=== PATIENT | male | born 1990 | race Caucasian/White ===

== ENCOUNTER 2016-03-10 19:46 | Emergency (ER) | payer OTHER ==
[2016-03-10 20:40] VITALS: BP 149/80
--- NOTE | 2016-03-10 21:29 | UC ---
Throat Pain/Nasal Farhad HPI - HPI Summary HPI Summary: 26 years old male with nasal congestion, sore throat, sinus pain and pressure for several day but worse over the last 2 days. He was using Mucinex with some relief but suffered from the stomach bug. He has gotten more congested, increased wet cough, sweats and chills over the last few days. States he gets one sinus infection yearly and requires and antibiotic to get better - History of Current Complaint Chief Complaint: UC Stated Complaint: HEAD CONGESTION Time Seen by Provider: 03/10/16 21:16 Hx Obtained From: Patient Onset/Duration: Gradual Onset, Lasting Days, Worse Since - x 2 days Severity: Moderate Cough: Nonproductive Associated Signs & Symptoms: Positive: Dysphagia - mild, Sinus Discomfort, Nasal Discharge, Fever. Negative: FB Sensation, Drooling, Wheezing, Hoarseness , Vomiting, Rash Related History: Seasonal Allergies, Smoking - Epiglottits Risk Factors Epiglottis Risk Factors: Negative - Allergies/Home Medications Allergies/Adverse Reactions: Allergies Allergy/AdvReac Type Severity Reaction Status Date / Time No Known Allergies Allergy Verified 03/10/16 20:34 Home Medications: Home Medications guaiFENesin ER TAB [Mucinex*] 1,200 mg PO BID PRN 03/10/16 [History Confirmed ] PMH/Surg Hx/FS Hx/Imm Hx Previously Healthy: Yes Endocrine History Of: Denies: Diabetes, Thyroid Disease Cardiovascular History Of: Denies: Cardiac Disorders, Hypertension, Pacemaker/ICD Respiratory History Of: Reports: Asthma GI/ History Of: Denies: Renal Disease - Surgical History Surgical History: Yes Surgery Procedure, Year, and Place: tonsils as child, carpal tunnel - Family History Known Family History: Positive: None, Unknown Negative: Cardiac Disease, Hypertension, Diabetes - Social History Occupation: Employed Full-time Lives: With Family Alcohol Use: None Substance Use Type: None Smoking Status (MU): Heavy Every Day Tobacco Smoker Type: Cigarettes Amount Used/How Often: 1 pack daily Household Exposure Type: Cigarettes Cessation Counseling: Counseled 3+Min - 10 Min - he states giving up smoking is his resolution and he will work with his primary care Review of Systems Constitutional: Chills - and sweats, Fatigue Skin: Negative Eyes: Negative ENT: Sore Throat - mild, Nasal Discharge, Other - sinus pain and pressure Respiratory: Cough Cardiovascular: Negative Gastrointestinal: Negative Genitourinary: Negative Motor: Negative Neurovascular: Negative Musculoskeletal: Myalgia Neurological: Headache - sinus Psychological: Negative All Other Systems Reviewed And Are Negative: Yes Physical Exam Triage Information Reviewed: Yes Appearance: No Pain Distress, Ill-Appearing - mildly, Obese Vital Signs: Initial Vital Signs Temp 98.8 F 03/10/16 20:34 Pulse 101 03/10/16 20:34 Resp 20 03/10/16 20:34 BP 149/80 03/10/16 20:34 Pulse Ox 98 03/10/16 20:34 Vital Signs Reviewed: Yes Eyes: Positive: Conjunctiva Clear. Negative: Discharge ENT: Positive: Hearing grossly normal, Pharyngeal erythema - mild, Nasal congestion, Nasal drainage - white post nasal drip, TMs normal, Other: - maxillary sinus pain and pressure with palpation Neck: Positive: Supple, Nontender, Enlarged Nodes @ - bilateral AC Respiratory: Positive: Lungs clear, Normal breath sounds. Negative: Crackles, Wheezing Cardiovascular: Positive: RRR, No Murmur Musculoskeletal: Positive: Strength Intact, ROM Intact Neurological: Positive: Alert, Muscle Tone Normal Psychological: Positive: Age Appropriate Behavior - pleasant and cooperative Skin: Negative: rashes, breakdown Throat Pain/Nasal Course/Dx - Differential Dx/Diagnosis Differential Diagnosis/HQI/PQRI: Pharyngitis, Sinusitis, URI Provider Diagnoses: Acute sinusitis. Allergic Rhinitis. tobacco abuse Discharge - Discharge Plan Condition: Stable Disposition: HOME Prescriptions: Amoxicillin/Clavulanate TAB* [Augmentin TAB 875*] 875 mg PO BID #20 tab Fluticasone NASAL SPRAY 50MCG* [Flonase NASAL SPRAY 50MCG*] 1 spray BOTH NARES DAILY #1 btl Patient Education Materials: Rhinosinusitis (ED), Amoxicillin/Clavulanate Potassium (By mouth)
[2016-03-10] MEDS ORDERED: Amoxicillin/Clavulanate TAB* 875 MG PO ONE (21:45)
== END 2016-03-10 21:52 | disposition home or self-care (01) ==
LOC: UCCORT 19:46
DX: J01.90 Acute sinusitis, unspecified (principal); J30.9 Allergic rhinitis, unspecified; F17.210 Nicotine dependence, cigarettes, uncomplicated
CPT/HCPCS: 99212; A9270-GY; G0463

== ENCOUNTER 2016-06-10 10:58 | Emergency (ER) | payer OTHER | END 2016-06-10 11:40 | disposition left against medical advice (07) | LOC: UCCORT 10:58 | DX: R09.89 Other specified symptoms and signs involving the circulatory and respiratory systems (principal); Z53.21 Procedure and treatment not carried out due to patient leaving prior to being seen by health care provider ==

== ENCOUNTER 2016-06-12 14:32 | Emergency (ER) | payer OTHER ==
[2016-06-12 15:25] VITALS: BP 111/54
--- NOTE | 2016-06-12 15:44 | ED ---
Influenza-Like Illness - HPI Summary HPI Summary: 26 yr old male with the complaint of cough, right upper quadrant pain with coughing. HPI: The patient has had runny nose, sinus congestion, chills for several days. He states the congestion moved into his chest over the weekend. He saw his doctor on Friday who told him he had bronchitis. He has a history of asthma and has been using his inhaler. He is not on antibiotics or steroids at this point. He feels his coughing has gotten worse. He could not get in to see his primary doctor today for follow up so he came here to get antibiotics and steroids. He states he is being worked up for a gallbladder issue at this point by his PMD. - History of Current Complaint Chief Complaint: UCRespiratory Time Seen by Provider: 06/12/16 15:28 - Allergy/Home Medications Allergies/Adverse Reactions: Allergies Allergy/AdvReac Type Severity Reaction Status Date / Time No Known Allergies Allergy Verified 06/12/16 15:25 Home Medications: Home Medications Dextromethorphan-Guaifenesin [Congesta Dm] 1 tab PO ONCE PRN 06/12/16 [History Confirmed 06/12/16] PMH/Surg Hx/FS Hx/Imm Hx Endocrine/Hematology History: Denies: Hx Diabetes, Hx Thyroid Disease Cardiovascular History: Denies: Hx Hypertension, Hx Pacemaker/ICD Respiratory History: Reports: Hx Asthma History: Denies: Hx Renal Disease Sensory History: Denies: Hx Hearing Aid Psychiatric History: Denies: Hx Panic Disorder - Surgical History Surgery Procedure, Year, and Place: tonsils as child, carpal tunnel 1999s Infectious Disease History: No Infectious Disease History: Denies: Hx Clostridium Difficile, Hx Hepatitis, Hx Human Immunodeficiency Virus (HIV), Hx of Known/Suspected MRSA, Hx Shingles, Hx Tuberculosis, Hx Known/ Suspected VRE, Hx Known/Suspected VRSA, History Other Infectious Disease, Traveled Outside the [place] in Last 30 Days - Family History Known Family History: Positive: None, Unknown Negative: Cardiac Disease, Hypertension, Diabetes - Social History Alcohol Use: None Substance Use Type: Reports: None Smoking Status (MU): Heavy Every Day Tobacco Smoker Type: Cigarettes Amount Used/How Often: 1 pack daily Review of Systems Positive: Chills Eyes: Negative Positive: Nasal Discharge Cardiovascular: Negative Positive: Cough All Other Systems Reviewed And Are Negative: Yes Physical Exam Triage Information Reviewed: Yes Vital Signs On Initial Exam: Initial Vitals Temp Pulse Resp BP Pulse Ox 98.4 F 86 18 111/54 98 06/12/16 15:13 06/12/16 15:13 06/12/16 15:13 06/12/16 15:13 06/12/16 15:13 Vital Signs Reviewed: Yes Appearance: Positive: Well-Appearing Skin: Positive: Warm Head/Face: Positive: Normal Head/Face Inspection Eyes: Positive: Normal, EOMI Neck: Positive: Supple Respiratory/Lung Sounds: Positive: Wheezes - bilateral Cardiovascular: Positive: Normal, RRR. Negative: Murmur Abdomen Description: Positive: Nontender Musculoskeletal: Positive: Normal, Strength/ROM Intact Neurological: Positive: Normal, Sensory/Motor Intact, Alert, Oriented to Person Place, Time, CN Intact II-III Psychiatric: Positive: Normal - Emmanuel Coma Scale Best Eye Response: 4 - Spontaneous Best Motor Response: 6 - Obeys Commands Best Verbal Response: 5 - Oriented Glascow Coma Scale Comments: 15 Diagnostics - Vital Signs Vital Signs Temp Pulse Resp BP Pulse Ox 06/12/16 15:13 98.4 F 86 18 111/54 98 - Laboratory Lab Statement: Any lab studies that have been ordered have been reviewed, and results considered in the medical decision making process. Flu Symptom Course/Dx - Diagnoses Provider Diagnoses: Acute bronchitis Discharge - Discharge Plan Condition: Good Disposition: HOME Prescriptions: Azithromycin TAB* [Zithromax TAB (Z-VIELKA) 250 mg #6 tabs] 2 tab PO .TODAY, THEN 1 DAILY #1 vielka predniSONE TAB* [Deltasone TAB*] 40 mg PO DAILY #8 tab Patient Education Materials: Acute Bronchitis (ED) Forms: *Work Release Referrals: Rufino Peraza MD [Primary Care Provider] -
--- NOTE | 2016-06-12 15:59 | RAD ---
Indication: Cough. No prior study is available for comparison. 2 views of the chest including dual energy PA views demonstrate no mediastinal shift. Heart is of normal size and configuration. Lung blas demonstrate no pleural fluid, pneumonia or pneumothorax. IMPRESSION: No active cardiopulmonary disease is noted.
== END 2016-06-12 16:20 | disposition home or self-care (01) ==
LOC: UCCORT 14:32
DX: J20.9 Acute bronchitis, unspecified (principal); F17.210 Nicotine dependence, cigarettes, uncomplicated
CPT/HCPCS: 71020; 99212; G0463

== ENCOUNTER 2016-09-17 11:28 | Emergency (ER) | payer SELFPAY ==
[2016-09-17 11:42] VITALS: BP 148/82
--- NOTE | 2016-09-17 12:32 | UC ---
Hand/Wrist HPI - HPI Summary HPI Summary: right hand pain x 2 hrs + injury to his right hand at his place of work heavy object fell on his right hand + pain , mild swelling, - History Of Current Complaint Chief Complaint: UCUpperExtremity Stated Complaint: RIGHT HAND INJURY-WC Time Seen by Provider: 09/17/16 12:17 Hx Obtained From: Patient Onset/Duration: Sudden Onset, Lasting Hours - 2, Still Present Severity Initially: Moderate Severity Currently: Moderate Character Of Pain: Aching, Throbbing Aggravating Factor(s): Movement Alleviating: Rest Associated Signs And Symptoms: Positive: Weakness. Negative: Swelling, Redness , Bruising, Fever, Numbness/Tingling, Other - Allergies/Home Medications Allergies/Adverse Reactions: Allergies Allergy/AdvReac Type Severity Reaction Status Date / Time No Known Allergies Allergy Verified 09/17/16 11:42 Home Medications: Home Medications NK [No Home Medications Reported] 09/17/16 [History Confirmed 09/17/16] PMH/Surg Hx/FS Hx/Imm Hx Previously Healthy: Yes - Surgical History Surgical History: Yes Surgery Procedure, Year, and Place: tonsils as child, right carpal tunnel 2000 - Family History Known Family History: Positive: None, Unknown Negative: Cardiac Disease, Hypertension, Diabetes - Social History Alcohol Use: None Substance Use Type: None Smoking Status (MU): Heavy Every Day Tobacco Smoker Type: Cigarettes Amount Used/How Often: 1 pack daily Household Exposure Type: Cigarettes Review of Systems Constitutional: Negative Skin: Negative Eyes: Negative ENT: Negative Respiratory: Negative Cardiovascular: Negative All Other Systems Reviewed And Are Negative: Yes Physical Exam Triage Information Reviewed: Yes Appearance: Well-Appearing, No Pain Distress, Well-Nourished, Pain Distress Vital Signs: Initial Vital Signs Temp 98.8 F 09/17/16 11:31 Pulse 88 09/17/16 11:31 Resp 20 09/17/16 11:31 BP 148/82 09/17/16 11:31 Vital Signs Reviewed: Yes Eyes: Positive: Conjunctiva Clear ENT: Positive: Normal ENT inspection, Hearing grossly normal, Pharynx normal Neck: Positive: Supple, Nontender, No Lymphadenopathy Respiratory: Positive: Chest non-tender, Normal breath sounds, No respiratory distress, No accessory muscle use Cardiovascular: Positive: RRR, No Murmur, Pulses Normal Abdominal Exam: Normal Abdomen Description: Positive: Nontender, Soft Bowel Sounds: Positive: Present Musculoskeletal: Positive: Other: - right hand: no deformaties, no swelling, no erythema, + tenderness 4,3,2 proximal phalangs and distal metacarpal. pain with ROM Hand/Wrist Course/Dx - Differential Dx/Diagnosis Provider Diagnoses: contusion right hand Discharge - Discharge Plan Condition: Stable Disposition: HOME Referrals: Rufino Peraza MD [Primary Care Provider] -
--- NOTE | 2016-09-17 12:40 | RAD ---
INDICATION: Right hand injury COMPARISON: None TECHNIQUE: AP, lateral, and oblique views were obtained. FINDINGS: The bony structures, joint spaces, and soft tissues are normal for age. IMPRESSION: NEGATIVE EXAMINATION.
== END 2016-09-17 13:11 | disposition home or self-care (01) ==
LOC: UCCORT 11:28
DX: S60.221A Contusion of right hand, initial encounter (principal); W20.8XXA Other cause of strike by thrown, projected or falling object, initial encounter; Y99.0 Civilian activity done for income or pay; F17.210 Nicotine dependence, cigarettes, uncomplicated
CPT/HCPCS: 99211; G0463

== ENCOUNTER 2016-10-24 20:15 | Emergency (ER) | payer OTHER ==
[2016-10-24 20:27] VITALS: BP 132/68
--- NOTE | 2016-10-24 21:09 | UC ---
Throat Pain/Nasal Farhad HPI - HPI Summary HPI Summary: ONE DAY OF SINUS PRESSURE CONGESTION, SORE THROAT. NO FEVER. - History of Current Complaint Chief Complaint: UCRespiratory Stated Complaint: SINUS PAIN Time Seen by Provider: 10/24/16 20:22 Hx Obtained From: Patient Onset/Duration: Sudden Onset, Lasting Hours, Still Present Severity: Moderate Cough: Nonproductive Associated Signs & Symptoms: Positive: Hoarseness, Sinus Discomfort, Nasal Discharge - Epiglottits Risk Factors Epiglottis Risk Factors: Negative - Allergies/Home Medications Allergies/Adverse Reactions: Allergies Allergy/AdvReac Type Severity Reaction Status Date / Time No Known Allergies Allergy Verified 10/24/16 20:27 PMH/Surg Hx/FS Hx/Imm Hx Previously Healthy: Yes - Surgical History Surgical History: Yes Surgery Procedure, Year, and Place: tonsils as child, right carpal tunnel 2000 - Family History Known Family History: Positive: None, Unknown Negative: Cardiac Disease, Hypertension, Diabetes - Social History Occupation: Employed Full-time Lives: With Family Alcohol Use: None Substance Use Type: None Smoking Status (MU): Heavy Every Day Tobacco Smoker Type: Cigarettes Amount Used/How Often: 1/2 pack daily Household Exposure Type: Cigarettes Cessation Counseling: Patient Advised to Stop Review of Systems Constitutional: Negative Skin: Negative ENT: Sore Throat, Sinus Congestion Respiratory: Negative Cardiovascular: Negative Gastrointestinal: Negative Genitourinary: Negative Motor: Negative Neurovascular: Negative Musculoskeletal: Negative Neurological: Negative Psychological: Negative All Other Systems Reviewed And Are Negative: Yes Physical Exam Triage Information Reviewed: Yes Appearance: Well-Appearing, No Pain Distress, Well-Nourished Vital Signs: Initial Vital Signs Temp 98.2 F 10/24/16 20:22 Pulse 103 10/24/16 20:22 Resp 18 10/24/16 20:22 BP 132/68 10/24/16 20:22 Pulse Ox 98 10/24/16 20:22 Vital Signs Reviewed: Yes Eye Exam: Normal ENT: Positive: Hearing grossly normal, Pharyngeal erythema, TMs normal Dental Exam: Normal Neck exam: Normal Neck: Positive: Supple, Nontender, No Lymphadenopathy Respiratory Exam: Normal Respiratory: Positive: Chest non-tender, Lungs clear, Normal breath sounds, No respiratory distress Cardiovascular Exam: Normal Cardiovascular: Positive: RRR, No Murmur, Pulses Normal Abdominal Exam: Normal Musculoskeletal Exam: Normal Musculoskeletal: Positive: Strength Intact, ROM Intact Neurological Exam: Normal Psychological Exam: Normal Skin Exam: Normal Throat Pain/Nasal Course/Dx - Differential Dx/Diagnosis Differential Diagnosis/HQI/PQRI: Sinusitis, Tonsillitis, URI Provider Diagnoses: UPPER RESPIRATORY INFECTION; PHARYNGITIS Discharge - Discharge Plan Condition: Stable Disposition: HOME Prescriptions: Benzonatate CAP* [Tessalon 100 MG CAP*] 100 mg PO TID PRN #12 cap PRN Reason: Cough Fluticasone NASAL SPRAY 50MCG* [Flonase NASAL SPRAY 50MCG*] 2 spray BOTH NARES DAILY #1 btl Patient Education Materials: Pharyngitis (ED), Upper Respiratory Infection (ED) Referrals: Rufino Peraza MD [Primary Care Provider] -
== END 2016-10-24 21:06 | disposition home or self-care (01) ==
LOC: UCCORT 20:15
DX: J06.9 Acute upper respiratory infection, unspecified (principal); J02.9 Acute pharyngitis, unspecified; F17.210 Nicotine dependence, cigarettes, uncomplicated
CPT/HCPCS: 87651; 99212; G0463

== ENCOUNTER 2017-02-20 11:09 | Emergency (ER) | payer OTHER ==
[2017-02-20 11:57] VITALS: BP 138/84
--- NOTE | 2017-02-20 12:41 | UC ---
Back Pain HPI - HPI Summary HPI Summary: right lower back pain x 2 days radiating to right lower ext. no known injury - History of Current Complaint Chief Complaint: UCBackPain Stated Complaint: BACK PAIN Time Seen by Provider: 02/20/17 12:15 Hx Obtained From: Patient Onset/Duration: Gradual Onset, Lasting Days - 2, Still Present Timing: Constant, Lasting Days - 2 Severity Initially: Severe Severity Currently: Severe Back Pain: Is Discrete @ - right lower back, Radiates To - right leg Character: Throbbing Aggravating Factor(s): Movement, Lifting, Bending, Walking Alleviating Factor(s): Nothing Associated Signs And Symptoms: Positive: Weakness - right leg. Negative: Swelling, Redness, Bruising, Fever, Numbness, Tingling, Abdominal Pain, Flank Pain, Bladder Incontinence, Bowel Incontinence, Weight Loss, Pain with Weight Bearing - Allergies/Home Medications Allergies/Adverse Reactions: Allergies Allergy/AdvReac Type Severity Reaction Status Date / Time No Known Allergies Allergy Verified 02/20/17 11:50 PMH/Surg Hx/FS Hx/Imm Hx Respiratory History: Asthma - Surgical History Surgical History: Yes Surgery Procedure, Year, and Place: tonsils as child, right carpal tunnel 2000s - Family History Known Family History: Positive: None, Unknown Negative: Cardiac Disease, Hypertension, Diabetes - Social History Alcohol Use: None Substance Use Type: None Smoking Status (MU): Heavy Every Day Tobacco Smoker Type: Cigarettes Amount Used/How Often: 1/2 pack daily Household Exposure Type: Cigarettes - Immunization History Most Recent Influenza Vaccination: no Review of Systems Constitutional: Negative Skin: Negative Eyes: Negative ENT: Negative Respiratory: Negative Gastrointestinal: Negative Is Patient Immunocompromised?: No All Other Systems Reviewed And Are Negative: Yes Physical Exam Triage Information Reviewed: Yes Appearance: Pain Distress, Obese Vital Signs: Initial Vital Signs Temp 98.3 F 02/20/17 11:50 Pulse 92 02/20/17 11:50 Resp 16 02/20/17 11:50 BP 138/84 02/20/17 11:50 Pulse Ox 99 02/20/17 11:50 Vital Signs Reviewed: Yes Eyes: Positive: Conjunctiva Clear ENT: Positive: Normal ENT inspection, Hearing grossly normal, Pharynx normal Neck exam: Normal Neck: Positive: Supple, Nontender, No Lymphadenopathy Respiratory: Positive: Chest non-tender, Lungs clear, Normal breath sounds Cardiovascular: Positive: RRR, No Murmur, Pulses Normal Abdominal Exam: Normal Abdomen Description: Positive: Nontender, Soft Bowel Sounds: Positive: Present Musculoskeletal: Positive: Strength Intact, No Edema, Other: - right lower back : no swelling, no erythema, + tenderness , limited ROM on flexion and extension due to pain , normal LE DTR Back Pain Course/Dx - Differential Dx/Diagnosis Provider Diagnoses: right lower back pain Discharge - Discharge Plan Condition: Stable Disposition: HOME Prescriptions: Cyclobenzaprine TAB* [Flexeril 10 MG TAB*] 10 mg PO BID #20 tab Naproxen [Naproxen EC 500 MG TAB] 500 mg PO BID #20 tab Referrals: No Primary Care Phys,NOPCP [Primary Care Provider] - 7 Days
--- NOTE | 2017-02-20 12:47 | RAD ---
Indication: Severe RIGHT lower back pain with radiation into the RIGHT leg for 2 weeks. Comparison: June 29, 2010 CT limited to axial and coronal images. Technique: AP and lateral views lumbar sacral spine. Report: Straightening relative to normal lumbar lordosis without spondylolisthesis at any level. Negative for fracture. Multilevel mild vertebral endplate osteophytosis throughout. Small Schmorl node endplate herniations. Negative for significant disc space narrowing. Facet joint osteoarthritis most prominent distally. Unremarkable paravertebral soft tissue contours. IMPRESSION: Multilevel mild degenerative spondylosis and facet joint osteophytes arthritis..
== END 2017-02-20 12:58 | disposition home or self-care (01) ==
LOC: UCCORT 11:09
DX: M54.5 Low back pain (principal); F17.210 Nicotine dependence, cigarettes, uncomplicated
CPT/HCPCS: 72100; 99212; G0463

== ENCOUNTER 2017-03-05 11:17 | Emergency (ER) | payer OTHER ==
[2017-03-05 11:49] VITALS: BP 127/79
[2017-03-05] MEDS ORDERED: Albuterol 2.5 MG/3 ML NEB.SOL* (0.083%) INH ONE (11:59)
--- NOTE | 2017-03-05 12:04 | UC ---
FLU HPI - History of Current Complaint Chief Complaint: UCRespiratory Stated Complaint: CHILLS,ACHES,COUGH,DIZZINESS Time Seen by Provider: 03/05/17 11:43 Hx Obtained From: Patient Onset/Duration: Sudden Onset - Since last night. Severity Currently: Moderate Severity Initially: Moderate Pain Scale Used: 0-10 Numeric - 6/10 Associated Signs & Symptoms: Positive: Fever, Myalgia, Cough, Sore Throat, Nasal Congestion, Headache, Diarrhea Related Hx: Possible Flu/Infectious Exposure - Risk Factors Influenza Risk Factors: Negative - Allergy/Home Medications Allergies/Adverse Reactions: Allergies Allergy/AdvReac Type Severity Reaction Status Date / Time No Known Allergies Allergy Verified 03/05/17 11:43 Home Medications: Home Medications Acetaminophen [Tylenol] 650 mg PO ONCE PRN 03/05/17 [History Confirmed 03/05/17] PMH/Surg Hx/FS Hx/Imm Hx Previously Healthy: No Respiratory History: Asthma - Occasional. - Surgical History Surgical History: Yes Surgery Procedure, Year, and Place: tonsils as child, right carpal tunnel - Family History Known Family History: Positive: None, Unknown Negative: Cardiac Disease, Hypertension, Diabetes - Social History Occupation: Unemployed Alcohol Use: None Substance Use Type: None Smoking Status (MU): Heavy Every Day Tobacco Smoker Type: Cigarettes Amount Used/How Often: 1/2 pack daily Have You Smoked in the Last Year: Yes Household Exposure Type: Cigarettes - Immunization History Most Recent Influenza Vaccination: no Review of Systems Constitutional: Fever, Chills, Fatigue Skin: Negative Eyes: Negative ENT: Sore Throat, Nasal Discharge, Sinus Congestion Respiratory: Cough Cardiovascular: Negative Gastrointestinal: Diarrhea Genitourinary: Negative Motor: Negative Neurovascular: Negative Musculoskeletal: Myalgia Neurological: Headache Psychological: Negative Is Patient Immunocompromised?: No All Other Systems Reviewed And Are Negative: Yes Physical Exam Triage Information Reviewed: Yes Appearance: Ill-Appearing Vital Signs: Initial Vital Signs Temp 99.4 F 03/05/17 11:44 Pulse 108 03/05/17 11:44 Resp 20 03/05/17 11:44 BP 127/79 03/05/17 11:44 Pulse Ox 97 03/05/17 11:44 Vital Signs Reviewed: Yes Eye Exam: Normal Eyes: Positive: Conjunctiva Clear ENT: Positive: Pharyngeal erythema, Nasal congestion, Nasal drainage, TMs normal Dental Exam: Normal Neck exam: Normal Neck: Positive: Supple, Nontender, No Lymphadenopathy Respiratory: Positive: Wheezing Cardiovascular: Positive: RRR, No Murmur, Brisk Capillary Refill Abdominal Exam: Normal Abdomen Description: Positive: Nontender, No Organomegaly, Soft Musculoskeletal Exam: Normal Neurological Exam: Normal Neurological: Positive: Other: - No meningeal signs Psychological Exam: Normal Skin Exam: Normal Diagnostics - Laboratory Diagnostic Studies Completed/Ordered: Flu test positive Flu Course/Dx - Differential Dx/Diagnosis Provider Diagnoses: Influenza B. Wheezing Discharge - Discharge Plan Condition: Stable Disposition: HOME Prescriptions: Oseltamivir CAP* [Tamiflu CAP*] 75 mg PO DAILY 5 Days #10 cap Patient Education Materials: Influenza (ED) Print Language: ARMENIAN Forms: *Work Release Referrals: Rufino Peraza MD [Primary Care Provider] - Additional Instructions: Flu test pos. Start the Tamiflu today. Rest at home and increase fluids to stay well hydrated. Run a humidifier. Run a vaporizer. marcelle Mucinex DM to help with cough and chest congestion. Saline nose spray for the nasal congestion. Ibuprofen for aches and fever.
== END 2017-03-05 12:43 | disposition home or self-care (01) ==
LOC: UCCORT 11:17
DX: J10.1 Influenza due to other identified influenza virus with other respiratory manifestations (principal); R06.2 Wheezing; Z72.0 Tobacco use
CPT/HCPCS: 87502; 99212; G0463

== ENCOUNTER 2017-10-05 19:14 | Emergency (ER) | payer OTHER ==
[2017-10-05 19:24] VITALS: BP 142/81
--- NOTE | 2017-10-05 19:31 | UC ---
UC General HPI - HPI Summary HPI Summary: pt is c/o head and chest congestion for 1.5 days. + cough and hx of asthma. - History of Current Complaint Chief Complaint: UCRespiratory Stated Complaint: CONGESTION Time Seen by Provider: 10/05/17 19:21 Hx Obtained From: Patient Onset/Duration: Gradual Onset Timing: Constant Pain Intensity: 0 Alleviating: nothing Associated Signs & Symptoms: Positive: Cough, Wheezing. Negative: SOB - Allergy/Home Medications Allergies/Adverse Reactions: Allergies Allergy/AdvReac Type Severity Reaction Status Date / Time No Known Allergies Allergy Verified 10/05/17 19:24 Home Medications: Home Medications Chlorphen/Pseudoeph/Ibuprofen [Advil Allergy Sinus Caplet] 1 each PO DAILY 10/05 [History Confirmed 10/05/17] Oxymetazoline 0.05% NASAL SPR* [Afrin 0.05% NASAL SPRAY*] 1 spray NASAL Q12H [History Confirmed 10/05/17] PMH/Surg Hx/FS Hx/Imm Hx Respiratory History: Asthma - Surgical History Surgical History: Yes Surgery Procedure, Year, and Place: tonsils as child, right carpal tunnel - Family History Known Family History: Positive: None, Unknown Negative: Cardiac Disease, Hypertension, Diabetes - Social History Occupation: Employed Full-time Lives: With Family Alcohol Use: None Substance Use Type: None Smoking Status (MU): Heavy Every Day Tobacco Smoker Type: Cigarettes Amount Used/How Often: 1/2 pack daily Have You Smoked in the Last Year: Yes Household Exposure Type: Cigarettes - Immunization History Most Recent Influenza Vaccination: no Vaccination Up to Date: Yes Review of Systems Constitutional: Negative Skin: Negative Eyes: Negative ENT: Sinus Congestion Respiratory: Cough Cardiovascular: Negative Gastrointestinal: Negative Genitourinary: Negative Motor: Negative Neurovascular: Negative Musculoskeletal: Negative Neurological: Negative Psychological: Negative Is Patient Immunocompromised?: No All Other Systems Reviewed And Are Negative: Yes Physical Exam Triage Information Reviewed: Yes Appearance: Well-Appearing Vital Signs: Initial Vital Signs Temp 98.6 F 10/05/17 19:21 Pulse 95 10/05/17 19:21 Resp 17 10/05/17 19:21 BP 142/81 10/05/17 19:21 Pulse Ox 98 10/05/17 19:21 Vital Signs Reviewed: Yes Eyes: Positive: Conjunctiva Clear ENT: Positive: Pharynx normal, Nasal congestion, TMs normal. Negative: Nasal drainage, Sinus tenderness Neck: Positive: Supple, Nontender, No Lymphadenopathy Respiratory: Positive: No respiratory distress, Decreased breath sounds, Wheezing - few scattered, Other: - cough is bronchospastic and congested. Cardiovascular: Positive: RRR, No Murmur Abdomen Description: Positive: Nontender, No Organomegaly, Soft Bowel Sounds: Positive: Present Musculoskeletal: Positive: ROM Intact Neurological: Positive: Alert Psychological: Positive: Age Appropriate Behavior Skin Exam: Normal Re-Evaluation - Re-Evaluation First Eval Change: Improved - wheezing resolved with improved aeration with neb tx Course/Dx - Course Course Of Treatment: exam c/w uri and asthma flare. will tx steroids, augmentin and albuterol with close f/u for recheck. - Differential Dx - Multi-Symptom Provider Diagnoses: URI. Asthma Flare Discharge - Sign-Out/Discharge Documenting (check all that apply): Patient Departure - Discharge Plan Condition: Stable Disposition: HOME Prescriptions: Albuterol HFA INHALER* [Ventolin HFA Inhaler*] 2 puff INH Q6H #1 mdi Amoxicillin/Clavulanate TAB* [Augmentin TAB 875*] 875 mg PO BID #14 tab predniSONE TAB* [Deltasone 20 MG TAB*] 40 mg PO DAILY #8 tab Patient Education Materials: Asthma (DC), Upper Respiratory Infection (DC) Forms: *Work Release Referrals: Rufino Peraza MD [Primary Care Provider] - 5 Days - Billing Disposition and Condition Condition: STABLE Disposition: Home
[2017-10-05] MEDS ORDERED: Amoxicillin/Clavulanate TAB* 875 MG PO ONE (19:37)
[2017-10-05] MEDS ORDERED: predniSONE TAB* 20 MG PO ONE (19:38)
[2017-10-05] MEDS ORDERED: Albuterol 2.5 MG/3 ML NEB.SOL* (0.083%) INH ONE (19:39)
== END 2017-10-05 20:10 | disposition home or self-care (01) ==
LOC: UCCORT 19:14
DX: J06.9 Acute upper respiratory infection, unspecified (principal); J45.909 Unspecified asthma, uncomplicated; F17.210 Nicotine dependence, cigarettes, uncomplicated
CPT/HCPCS: 99213; A9270-GY; G0463; J7512

== ENCOUNTER 2018-01-27 18:28 | Emergency (ER) | payer OTHER ==
[2018-01-27 20:11] VITALS: BP 143/84
--- NOTE | 2018-01-27 20:19 | UC ---
General HPI - HPI Summary HPI Summary: yesterday, pt slipped on black ice. his feet went out from under him causing him to fall. pt landed on his mid back and R ribs on the edge of a curb. he is c/o mid back and R rib pain. denies sob, abdominal pain, hematuria, numb/weak extremities, bowel/bladder dysfunction and saddle anesthesia. no self tx. pain worsens with movement. - History of Current Complaint Chief Complaint: UCBackPain Stated Complaint: S/P FALL (YEST) BACK/RIB PAIN Time Seen by Provider: 01/27/18 20:07 Hx Obtained From: Patient Onset/Duration: Sudden Onset Timing: Constant Pain Intensity: 12 - Allergy/Home Medications Allergies/Adverse Reactions: Allergies Allergy/AdvReac Type Severity Reaction Status Date / Time No Known Allergies Allergy Verified 01/27/18 20:09 PMH/Surg Hx/FS Hx/Imm Hx Previously Healthy: Yes - Surgical History Surgical History: Yes Surgery Procedure, Year, and Place: tonsils as child, right carpal tunnel 2000s - Family History Known Family History: Positive: None, Unknown Negative: Cardiac Disease, Hypertension, Diabetes - Social History Alcohol Use: None Substance Use Type: None Smoking Status (MU): Heavy Every Day Tobacco Smoker Type: Cigarettes Amount Used/How Often: 1 pack daily Have You Smoked in the Last Year: Yes Household Exposure Type: Cigarettes - Immunization History Most Recent Influenza Vaccination: no Vaccination Up to Date: Yes Review of Systems All Other Systems Reviewed And Are Negative: Yes Constitutional: Positive: Negative Skin: Positive: Negative Eyes: Positive: Negative ENT: Positive: Negative Respiratory: Positive: Negative Cardiovascular: Positive: Negative Gastrointestinal: Positive: Negative Genitourinary: Positive: Negative Motor: Positive: Negative Neurovascular: Positive: Negative Musculoskeletal: Positive: Negative Neurological: Positive: Negative Psychological: Positive: Negative Physical Exam Triage Information Reviewed: Yes Appearance: Well-Appearing Vital Signs: Initial Vital Signs Temp 97.9 F 01/27/18 20:08 Pulse 101 01/27/18 20:08 Resp 22 01/27/18 20:08 BP 143/84 01/27/18 20:08 Pulse Ox 98 01/27/18 20:08 Vital Signs Reviewed: Yes Eyes: Positive: Conjunctiva Clear ENT: Positive: Pharynx normal, TMs normal. Negative: Nasal congestion, Nasal drainage Neck: Positive: Supple, Nontender, No Lymphadenopathy, Other: - c-spine non tender Respiratory: Positive: Lungs clear, Normal breath sounds Cardiovascular: Positive: RRR, No Murmur Abdomen Description: Positive: Nontender, No Organomegaly, Soft. Negative: Distended, Guarding, Hepatomegaly, Splenomegaly Musculoskeletal: Positive: Other: - Head is atrumatic. C-spine non tender. Chest has no deformity or discoloration but R posterior ribs are tender to palpation but no instability. Back has no deformity or discoloration. Tender over thoracic spine only. Lumbar spine is non tender. ROM intact but pt c/o pain. No saddle aneshtesia. 5/5 strength, 2+ reflexes and sensation intact x 4. Steady gait. Neurological: Positive: Alert Psychological: Positive: Age Appropriate Behavior Skin Exam: Normal Diagnostics - Laboratory Diagnostic Studies Completed/Ordered: u/a=trace blood only - Radiology No standard instances Radiology Interpretation Completed By: ED Physician - wet read: cxr= no fx ribs or ptx. t spine=deg changes, Radiologist - CT THORACIC SPINE IMPRESSION: No acute fracture, subluxation, or aggressive osseous lesion. Course/Dx - Course Course Of Treatment: no acute abdomen. No concern for cauda equina. u/a=trace blood only. wet read:CXR, no rib fx's or ptx. T spine deg changes - Differential Dx - Multi-Symptom Provider Diagnoses: R posterior chest wall pain and mid back pain post fall Discharge - Sign-Out/Discharge Documenting (check all that apply): Patient Departure All imaging exams completed and their final reports reviewed: No - Discharge Plan Condition: Stable Disposition: HOME Prescriptions: Cyclobenzaprine TAB* [Flexeril 10 MG TAB*] 10 mg PO TID #10 tab Naproxen [Naprosyn 500 mg tab] 500 mg PO BID 5 Days #10 tablet Patient Education Materials: Chest Wall Pain (ED), Back Pain (ED) Forms: *Work Release Referrals: Rufino Peraza MD [Primary Care Provider] - Additional Instructions: FOLLOW UP WITH YOUR DOCTOR ON FRIDAY FOR A RECHECK OR SOONER FOR ANY WORSENING. - Billing Disposition and Condition Condition: STABLE Disposition: Home
[2018-01-27] MEDS ORDERED: Ketorolac INJ* 60 MG/2 ML VIAL IM ONE (20:43)
[2018-01-27] MEDS ORDERED: Cyclobenzaprine TAB* 10 MG PO ONE (21:45)
--- NOTE | 2018-01-28 09:30 | UC ---
- Progress Note Progress Note: CXR T sine xray both neg, no fx Discharge - Sign-Out/Discharge Documenting (check all that apply): Post-Discharge Follow Up All imaging exams completed and their final reports reviewed: Yes - Discharge Plan Condition: Stable Disposition: HOME Prescriptions: Cyclobenzaprine TAB* [Flexeril 10 MG TAB*] 10 mg PO TID #10 tab Naproxen [Naprosyn 500 mg tab] 500 mg PO BID 5 Days #10 tablet Patient Education Materials: Back Pain (ED), Chest Wall Pain (ED) Forms: *Work Release Referrals: Rufino Peraza MD [Primary Care Provider] - Additional Instructions: FOLLOW UP WITH YOUR DOCTOR ON FRIDAY FOR A RECHECK OR SOONER FOR ANY WORSENING. - Billing Disposition and Condition Condition: STABLE Disposition: Home
== END 2018-01-27 21:55 | disposition home or self-care (01) ==
LOC: UCCORT 18:28
DX: M54.6 Pain in thoracic spine (principal); R07.89 Other chest pain; F17.210 Nicotine dependence, cigarettes, uncomplicated; W00.0XXA Fall on same level due to ice and snow, initial encounter; Y92.9 Unspecified place or not applicable
CPT/HCPCS: 71046; 72070; 72128; 81003; 96372; 99212; A9270-GY; G0463; J1885

== ENCOUNTER 2018-03-07 11:48 | Emergency (ER) | payer OTHER ==
[2018-03-07 13:23] VITALS: BP 132/74
--- NOTE | 2018-03-07 13:30 | UC ---
General HPI - HPI Summary HPI Summary: sore throat making ears hurt and cough x 1 days. no fever or sob. - History of Current Complaint Chief Complaint: UCRespiratory Stated Complaint: SORE THROAT, EARS Time Seen by Provider: 03/07/18 13:20 Hx Obtained From: Patient, Family/Elementary Reading Specialist Onset/Duration: Gradual Onset Timing: Constant Pain Intensity: 3 Associated Signs & Symptoms: Positive: Cough. Negative: Chest Pain, Fever - Allergy/Home Medications Allergies/Adverse Reactions: Allergies Allergy/AdvReac Type Severity Reaction Status Date / Time No Known Allergies Allergy Verified 03/07/18 13:21 PMH/Surg Hx/FS Hx/Imm Hx Previously Healthy: Yes - Surgical History Surgical History: Yes Surgery Procedure, Year, and Place: tonsils as child, right carpal tunnel - Family History Known Family History: Positive: None, Unknown Negative: Cardiac Disease, Hypertension, Diabetes - Social History Lives: With Family Alcohol Use: None Substance Use Type: None Smoking Status (MU): Heavy Every Day Tobacco Smoker Type: Cigarettes Amount Used/How Often: 1 pack daily Have You Smoked in the Last Year: Yes Household Exposure Type: Cigarettes - Immunization History Most Recent Influenza Vaccination: no Vaccination Up to Date: Yes Review of Systems All Other Systems Reviewed And Are Negative: Yes Constitutional: Positive: Negative Skin: Positive: Negative Eyes: Positive: Negative ENT: Positive: Sore Throat, Ear Ache Respiratory: Positive: Cough Cardiovascular: Positive: Negative Gastrointestinal: Positive: Negative Genitourinary: Positive: Negative Motor: Positive: Negative Neurovascular: Positive: Negative Musculoskeletal: Positive: Negative Neurological: Positive: Negative Psychological: Positive: Negative Physical Exam Triage Information Reviewed: Yes Appearance: Well-Appearing Vital Signs: Initial Vital Signs Temp 97.4 F 03/07/18 13:22 Pulse 91 03/07/18 13:22 Resp 18 03/07/18 13:22 BP 132/74 03/07/18 13:22 Pulse Ox 97 03/07/18 13:22 Vital Signs Reviewed: Yes Eyes: Positive: Conjunctiva Clear ENT: Positive: Pharyngeal erythema, TMs normal, Uvula midline - but mildly swollen and red.. Negative: Nasal congestion, Nasal drainage, Trismus, Muffled voice, Hoarse voice Neck: Positive: Supple, Tenderness @ - pertonsilar nodes with mild swelling. Respiratory: Positive: Lungs clear, Normal breath sounds, No respiratory distress Cardiovascular: Positive: RRR, No Murmur Abdomen Description: Positive: Nontender, No Organomegaly, Soft Bowel Sounds: Positive: Present Musculoskeletal: Positive: ROM Intact Neurological: Positive: Alert Psychological: Positive: Age Appropriate Behavior Skin Exam: Normal Diagnostics - Laboratory Diagnostic Studies Completed/Ordered: rapid strep=negative Course/Dx - Differential Dx - Multi-Symptom Differential Diagnoses: Other - no concern for peritonsilar abscess. rapid strep is neg; however, uvulitis on exam thus will tx with decadron x 1 and augmentin. - Diagnoses Provider Diagnosis: Uvulitis Discharge - Sign-Out/Discharge Documenting (check all that apply): Patient Departure All imaging exams completed and their final reports reviewed: No Studies - Discharge Plan Condition: Stable Disposition: HOME Prescriptions: Amoxicillin/Clavulanate TAB* [Augmentin TAB 875*] 875 mg PO BID 10 Days #20 tab Patient Education Materials: Uvulitis (ED) Referrals: Rufino Peraza MD [Primary Care Provider] - 5 Days - Billing Disposition and Condition Condition: STABLE Disposition: Home
[2018-03-07] MEDS ORDERED: Dexamethasone TAB* 4 MG PO ONE (13:46)
== END 2018-03-07 14:07 | disposition home or self-care (01) ==
LOC: UCCORT 11:48
DX: K12.2 Cellulitis and abscess of mouth (principal); F17.210 Nicotine dependence, cigarettes, uncomplicated
CPT/HCPCS: 87651; 99212; G0463; J8540

== ENCOUNTER 2018-03-19 19:51 | Emergency (ER) | payer OTHER ==
[2018-03-19 20:24] VITALS: BP 151/82
[2018-03-19] MEDS ORDERED: Azithromycin TAB* 250 MG PO ONE (20:34)
--- NOTE | 2018-03-19 20:42 | ED ---
Throat Pain/Nasal Congestion - HPI Summary HPI Summary: 28 yr old male with Upper respiratory symptoms for 10 days plus. He was seen on the 07 of March, developed coughing and uri symptoms after his uvula was inflamed. He presents here after only feeling better for a couple of days on the augmentin and steroids. he has some ringing in the left ear, increased coughing and sore throat as well. He denies CP. The patient denies fever. No other complaints. - History of Current Complaint Chief Complaint: UCRespiratory Time Seen by Provider: 03/19/18 20:17 - Allergies/Home Medications Allergies/Adverse Reactions: Allergies Allergy/AdvReac Type Severity Reaction Status Date / Time No Known Allergies Allergy Verified 03/19/18 20:25 Home Medications: Home Medications Guaifenesin/Pseudoephedrne HCl [Mucinex D ER Tablet] 1 each PO DAILY 03/19/18 [ History Confirmed 03/19/18] PMH/Surg Hx/FS Hx/Imm Hx Endocrine/Hematology History: Denies: Hx Diabetes, Hx Thyroid Disease Cardiovascular History: Denies: Hx Hypertension, Hx Pacemaker/ICD Respiratory History: Reports: Hx Asthma History: Denies: Hx Renal Disease Sensory History: Denies: Hx Hearing Aid Psychiatric History: Denies: Hx Panic Disorder - Surgical History Surgery Procedure, Year, and Place: tonsils, right carpal tunnel 2000s Infectious Disease History: No Infectious Disease History: Denies: Hx Clostridium Difficile, Hx Hepatitis, Hx Human Immunodeficiency Virus (HIV), Hx of Known/Suspected MRSA, Hx Shingles, Hx Tuberculosis, Hx Known/ Suspected VRE, Hx Known/Suspected VRSA, History Other Infectious Disease, Traveled Outside the [place] in Last 30 Days - Family History Known Family History: Positive: None, Unknown Negative: Cardiac Disease, Hypertension, Diabetes - Social History Alcohol Use: None Substance Use Type: Reports: None Smoking Status (MU): Heavy Every Day Tobacco Smoker Type: Cigarettes Amount Used/How Often: 1 pack daily Length of Time of Smoking/Using Tobacco: since age 19 Have You Smoked in the Last Year: Yes Review of Systems Constitutional: Negative Positive: Sore Throat, Ear Ache, Nasal Discharge Positive: Cough All Other Systems Reviewed And Are Negative: Yes Physical Exam Triage Information Reviewed: Yes Vital Signs On Initial Exam: Initial Vitals Temp Pulse Resp BP Pulse Ox 98.2 F 104 20 151/82 98 03/19/18 20:19 03/19/18 20:19 03/19/18 20:19 03/19/18 20:19 03/19/18 20:19 Vital Signs Reviewed: Yes Appearance: Positive: Well-Appearing, No Pain Distress Skin: Positive: Warm, Skin Color Reflects Adequate Perfusion Eyes: Positive: EOMI ENT: Positive: Pharyngeal erythema, Nasal congestion, TM red - left side with red, hemmoragic blisters consistent with bullous myringitis. Neck: Positive: Nontender Respiratory/Lung Sounds: Positive: Clear to Auscultation, Breath Sounds Present Cardiovascular: Positive: RRR. Negative: Murmur Abdomen Description: Negative: Distended Musculoskeletal: Positive: Strength/ROM Intact Neurological: Positive: Sensory/Motor Intact, Alert, Oriented to Person Place, Time, CN Intact II-III Psychiatric: Positive: Normal - [place] Coma Scale Best Eye Response: 4 - Spontaneous Best Motor Response: 6 - Obeys Commands Best Verbal Response: 5 - Oriented Coma Scale Total: 15 Diagnostics - Vital Signs Vital Signs Temp Pulse Resp BP Pulse Ox 03/19/18 20:19 98.2 F 104 20 151/82 98 - Laboratory Lab Statement: Any lab studies that have been ordered have been reviewed, and results considered in the medical decision making process. EENT Course/Dx - Course Course Of Treatment: 28 yr old with bullous myringitis, and pharyngitis, cough. Rx zithromax. FU with PMD for BP as well in 48 hours. - Diagnoses Provider Diagnoses: Bullous myringitis of left ear, Mycoplasma infection Discharge - Sign-Out/Discharge Documenting (check all that apply): Patient Departure All imaging exams completed and their final reports reviewed: No Studies - Discharge Plan Condition: Good Disposition: HOME Prescriptions: Azithromycin TAB* [Zithromax TAB (Z-VILEKA) 250 mg #6 tabs] 2 tab PO .TODAY, THEN 1 DAILY #1 vielka Patient Education Materials: Pharyngitis (ED), Ear Infection (ED), Hypertension (ED) Referrals: Rufino Peraza MD [Primary Care Provider] - 2 Days - Billing Disposition and Condition Condition: GOOD Disposition: Home
== END 2018-03-19 20:44 | disposition home or self-care (01) ==
LOC: UCCORT 19:51
DX: H73.012 Bullous myringitis, left ear (principal); B96.0 Mycoplasma pneumoniae [M. pneumoniae] as the cause of diseases classified elsewhere; F17.210 Nicotine dependence, cigarettes, uncomplicated
CPT/HCPCS: 99212; A9270-GY; G0463

== ENCOUNTER 2018-11-26 17:21 | Emergency (ER) | payer OTHER ==
[2018-11-26 18:20] VITALS: BP 117/67
--- NOTE | 2018-11-26 19:35 | UC ---
Throat Pain/Nasal Farhad HPI - HPI Summary HPI Summary: Pt presents with c/o nasal congestion sinus pressure and pain X3 days. - History of Current Complaint Chief Complaint: UCGeneralIllness Stated Complaint: SINUS' Time Seen by Provider: 11/26/18 19:31 Hx Obtained From: Patient Onset/Duration: Gradual Onset, Worse Since Severity: Moderate Pain Intensity: 4 Cough: None Associated Signs & Symptoms: Positive: Sinus Discomfort - Epiglottits Risk Factors Epiglottis Risk Factors: Negative - Allergies/Home Medications Allergies/Adverse Reactions: Allergies Allergy/AdvReac Type Severity Reaction Status Date / Time antibiotic eye drop Allergy Swelling Uncoded 11/26/18 18:13 Home Medications: Home Medications Phentermine HCl 37.5 mg PO DAILY 11/26/18 [History Confirmed 11/26/18] PMH/Surg Hx/FS Hx/Imm Hx Previously Healthy: Yes - Surgical History Surgical History: Yes Surgery Procedure, Year, and Place: tonsils, right carpal tunnel 2000s - Family History Known Family History: Positive: None, Unknown Negative: Cardiac Disease, Hypertension, Diabetes - Social History Occupation: Employed Full-time Lives: With Family Alcohol Use: None Substance Use Type: None Smoking Status (MU): Heavy Every Day Tobacco Smoker Type: Cigarettes Amount Used/How Often: 1/2 pack daily Length of Time of Smoking/Using Tobacco: since age 19 Have You Smoked in the Last Year: Yes Household Exposure Type: Cigarettes - Immunization History Most Recent Influenza Vaccination: no Vaccination Up to Date: Yes Review of Systems All Other Systems Reviewed And Are Negative: Yes Constitutional: Positive: Fatigue Skin: Positive: Negative Eyes: Positive: Negative ENT: Positive: Sinus Congestion, Sinus Pain/Tenderness Respiratory: Positive: Negative Cardiovascular: Positive: Negative Gastrointestinal: Positive: Negative Genitourinary: Positive: Negative Motor: Positive: Negative Neurovascular: Positive: Negative Musculoskeletal: Positive: Negative Neurological: Positive: Negative Psychological: Positive: Negative Is Patient Immunocompromised?: No Physical Exam Triage Information Reviewed: Yes Appearance: Ill-Appearing Vital Signs: Initial Vital Signs Temp 98.2 F 11/26/18 18:15 Pulse 97 11/26/18 18:15 Resp 22 11/26/18 18:15 BP 117/67 11/26/18 18:15 Pulse Ox 98 11/26/18 18:15 Vital Signs Reviewed: Yes Eye Exam: Normal ENT: Positive: Nasal congestion, Sinus tenderness Dental Exam: Normal Neck exam: Normal Respiratory Exam: Normal Respiratory: Positive: Normal breath sounds Cardiovascular Exam: Normal Musculoskeletal Exam: Normal Neurological Exam: Normal Psychological Exam: Normal Skin Exam: Normal Throat Pain/Nasal Course/Dx - Differential Dx/Diagnosis Differential Diagnosis/HQI/PQRI: Influenza, Sinusitis, URI Provider Diagnosis: Sinusitis Discharge ED - Sign-Out/Discharge Documenting (check all that apply): Patient Departure All imaging exams completed and their final reports reviewed: No Studies - Discharge Plan Condition: Stable Disposition: HOME Prescriptions: Amoxicillin PO (*) [Amoxicillin 875 MG (*)] 875 mg PO Q12H #20 tab Fexofenadine/Pseudoephedrine [Kelsey-D 24 Hour Tablet] 1 each PO DAILY #7 tab.er.24h Patient Education Materials: Sinusitis (ED) Referrals: Rufino Peraza MD [Primary Care Provider] - If Needed - Billing Disposition and Condition Condition: STABLE Disposition: Home
== END 2018-11-26 19:41 | disposition home or self-care (01) ==
LOC: UCCORT 17:21
DX: J32.9 Chronic sinusitis, unspecified (principal); F17.210 Nicotine dependence, cigarettes, uncomplicated
CPT/HCPCS: 99212; G0463